=== PATIENT | female | born 1940 | race American Indian/Alaskan Native ===

== ENCOUNTER 2017-01-17 16:14 | Inpatient (IN) | payer OTHER, MEDICARE ==
[2017-01-17 18:13] VITALS: BMI 32.8
--- NOTE | 2017-01-17 19:10 | CP.PCM.HP ---
History of Present Illness - History of Present Illness History of Present Illness: 76 yo female with history of CAD, HTN, Asthma, DM2, Anemia and OA underwent left TKR on 01/14/2017 after failing conservative management of OA. She was transferred to [facility] TCU for continued management and PT. Present on Admission - Present on Admission Any Indicators Present on Admission: No History of DVT/PE: No History of Uncontrolled Diabetes: No Urinary Catheter: No Decubitus Ulcer Present: No Review of Systems - Review of Systems All systems: reviewed and no additional remarkable complaints except (aside from those mentioned above, 12 point system review were negative by me) Past Patient History - Tetanus Immunizations Tetanus Immunization: Unknown - Past Medical History & Family History Past Medical History?: Yes - Past Social History Smoking Status: Never Smoked Alcohol: None Drugs: Denies - CARDIAC Hx Cardiac Disorders: Yes Hx Circulatory Problems: Yes Hx Hypercholesterolemia: Yes Hx Hypertension: Yes - PULMONARY Hx Respiratory Disorders: Yes Hx Asthma: Yes Hx Pneumonia: Yes Hx Tuberculosis: Yes (AGE 16) - NEUROLOGICAL Hx Neurological Disorder: No - HEENT Hx HEENT Problems: Yes (GLASSES) Hx Cataracts: Yes (IOLI RT EYE) - RENAL Hx Chronic Kidney Disease: No - ENDOCRINE/METABOLIC Hx Endocrine Disorders: Yes Hx Diabetes Mellitus Type 2: Yes Hx Hypothyroidism: Yes - HEMATOLOGICAL/ONCOLOGICAL Hx Blood Disorders: No - INTEGUMENTARY Hx Dermatological Problems: No - MUSCULOSKELETAL/RHEUMATOLOGICAL Hx Musculoskeletal Disorders: Yes Hx Back Pain: Yes (LUMBAR SCIATICA) Hx Osteoarthritis: Yes - GASTROINTESTINAL Hx Gastrointestinal Disorders: Yes Hx Gastritis: Yes Hx Gastroesophageal Reflux: Yes - GENITOURINARY/GYNECOLOGICAL Hx Genitourinary Disorders: No - PSYCHIATRIC Hx Anxiety: Yes (RELATED TO 1 YR. HOSPITALIZATION FOR TB AT AGE 16) Hx Emotional Abuse: No Hx Physical Abuse: No Hx Substance Use: No - SURGICAL HISTORY Hx Surgeries: Yes (cardiac cath 11/12; lesix3; ptca/stent ; btl; colonoscopy) Hx Cataract Extraction: Yes (RT EYE IOLI) Hx Cardiac Catheterization: Yes (2007) Hx Coronary Stent: Yes (X1) Hx Pulmonary Surgery: Yes (AGE 17 EXC. TUBERCULAR LESION LEFT LUNG) Hx Tubal Ligation: Yes Other/Comment: EPIDURALS FOR BACK PAIN - ANESTHESIA Hx Anesthesia: Yes Hx Anesthesia Reactions: No Hx Malignant Hyperthermia: No Meds Allergies/Adverse Reactions: Allergies Allergy/AdvReac Type Severity Reaction Status Date / Time No Known Allergies Allergy Verified 01/17/17 18:13 Physical Exam - Constitutional Appears: No Acute Distress - Head Exam Head Exam: ATRAUMATIC - Eye Exam Eye Exam: absent: Scleral icterus - ENT Exam ENT Exam: Mucous Membranes Moist - Neck Exam Neck exam: Negative for: Meningismus - Respiratory Exam Respiratory Exam: absent: Rhonchi, Wheezes, Respiratory Distress - Cardiovascular Exam Cardiovascular Exam: REGULAR RHYTHM, +S1, +S2 - GI/Abdominal Exam GI & Abdominal Exam: Soft. absent: Tenderness - Rectal Exam Rectal Exam: Deferred - Extremities Exam Extremities exam: Negative for: full ROM (left knee with limited ROM post TKR) - Back Exam Back exam: NORMAL INSPECTION - Neurological Exam Neurological exam: Alert, Oriented x3 - Psychiatric Exam Psychiatric exam: Normal Affect - Skin Skin Exam: Dry, Intact Assessment & Plan - Assessment and Plan (Free Text) Assessment: 76 yo female with history of CAD, HTN, Asthma, DM2, Anemia and OA underwent left TKR on 01/14/2017 after failing conservative management of OA. She was transferred to TCU for continued management and PT. (1) Primary osteoarthritis of left knee left TKR, POD # 3 continue pain management refer to PT for evaluation and management CPM per orthopedist recommendation (2) HTN (hypertension) BP stable continue Valsartan and HCTZ (3) DM2 BS controlled diabetic diet accuchek ACHS Metformin 850mg PO q am (4) CAD (coronary artery disease) asymptomatic continue ASA, Lipitor and Isosorbide Mononitrate (5) Hyperlipidemia continue Lipitor (6) Asthma Advair 1 puff q 12hrs Montelukast 1omg PO HS (7) Hypothyroidism [id number] PO daily (8) DVT Prophylaxis Lovenox 30mg SC q 12hrs
[2017-01-17] MEDS ORDERED: DEXTROSE IV SCH (19:45)
[2017-01-17] MEDS ORDERED: CEFAZOLIN IV SCH (19:45)
[2017-01-17] MEDS ORDERED: Tuberculin 5 Units/0.1 ml Inj ID ONE (19:53)
[2017-01-17 20:40] VITALS: RESP 20
[2017-01-17] MEDS: Enoxaparin 30 mg Syringe SC SCH (20:40)
[2017-01-18] MEDS: ceFAZolin 1 GM in Sodium Chloride 0.9% 100 ML IVPB SCH ×3 (00:07→16:40)
[2017-01-18 08:05] LABS: BASO % 0.2 % (0.0-2.0); EOS # 0.2 K/uL (0.0-0.7); EOS % 2.2 % (0.0-4.0); HEMATOCRIT 24.5 % (34.0-47.0); LYMPH # 2.2 K/uL (1.0-4.3); LYMPH % 20.3 % (20.0-40.0); MEAN CELL VOLUME 79.2 fl (81.0-99.0); MEAN CORPUSCULAR HEMOGLOBIN 26.6 pg (27.0-31.0); MEAN CORPUSCULAR HGB CONC 33.6 g/dL (33.0-37.0); MEAN PLATELET VOLUME 8.6 fl (7.2-11.7); MONO # 1.2 K/uL (0.0-0.8); MONO % 10.9 % (0.0-10.0); NEUT # 7.1 K/uL (1.8-7.0); NEUT % 66.4 % (50.0-75.0); RED CELL DISTRIBUTION WIDTH 15.5 % (11.5-14.5); WHITE BLOOD COUNT 10.7 K/uL (4.8-10.8)
[2017-01-18 08:16] LABS: BLOOD UREA NITROGEN 19 mg/dl (7-17); CALCIUM 8.3 mg/dL (8.4-10.2); CARBON DIOXIDE 26 mmol/L (22-30); CHLORIDE 101 mmol/L (98-107); GFR AFRICAN-AMERICAN > 60; GLUCOSE,RANDOM 106 mg/dL (65-105); POTASSIUM 4.1 MMOL/L (3.6-5.0); SODIUM 133 mmol/l (132-148)
[2017-01-18] MEDS: Oxycodone/Acetaminophen 5/325 mg Tab PO PRN ×3 (09:06→22:10)
[2017-01-18] MEDS: Fluticasone-Salmeterol 500-50mcg Diskus INH SCH ×2 (09:08→16:40)
[2017-01-18] MEDS: Levothyroxine 50 MCG TAB PO SCH (09:09)
[2017-01-18] MEDS: Enoxaparin 30 mg Syringe SC SCH ×2 (09:09→22:12)
[2017-01-18] MEDS: Pantoprazole 40 mg EC Tab PO SCH (09:11)
[2017-01-19] MEDS: ceFAZolin 1 GM in Sodium Chloride 0.9% 100 ML IVPB SCH ×3 (00:08→22:27)
[2017-01-19] MEDS: Levothyroxine 50 MCG TAB PO SCH (06:30)
[2017-01-19] MEDS: Oxycodone/Acetaminophen 5/325 mg Tab PO PRN ×2 (06:31→12:24)
[2017-01-19] MEDS: Fluticasone-Salmeterol 500-50mcg Diskus INH SCH ×2 (08:52→17:49)
[2017-01-19] MEDS: Pantoprazole 40 mg EC Tab PO SCH (08:52)
[2017-01-19] MEDS: Enoxaparin 30 mg Syringe SC SCH ×3 (08:52→22:28)
[2017-01-19] MEDS ORDERED: Chlorhexidine Gluconate 1 APPL/PKT TP ONE (17:38)
[2017-01-20] MEDS: Oxycodone/Acetaminophen 5/325 mg Tab PO PRN ×3 (01:55→14:44)
[2017-01-20] MEDS: ceFAZolin 1 GM in Sodium Chloride 0.9% 100 ML IVPB SCH ×3 (04:18→21:17)
[2017-01-20] MEDS: Levothyroxine 50 MCG TAB PO SCH (06:19)
[2017-01-20] MEDS: Pantoprazole 40 mg EC Tab PO SCH (09:17)
[2017-01-20] MEDS: Enoxaparin 30 mg Syringe SC SCH ×2 (09:18→21:18)
[2017-01-20] MEDS: Fluticasone-Salmeterol 500-50mcg Diskus INH SCH ×2 (09:18→17:25)
--- NOTE | 2017-01-20 17:43 | CP.PCM.CON ---
History of Present Illness - History of Present Illness History of Present Illness: Dr Rojas PMR consultation on Lynne Reed, born 1940, who has been admitted to [facility] TCU following a left TKR with Dr Dsouza. Post op doing well. Pain is well controlled. She is constipated though. Had a BM friday from a [facility]. She notes that she is diabetic but since here on strict diet sugars are much better controlled Review of Systems - Constitutional Constitutional: absent: Anorexia, Chills - EENT Ears: absent: Ear Discharge Nose/Mouth/Throat: absent: Epistaxis, Nasal Congestion - Cardiovascular Cardiovascular: absent: Chest Pain, Claudication - Respiratory Respiratory: absent: Dyspnea - Gastrointestinal Gastrointestinal: Constipation - Musculoskeletal Musculoskeletal: absent: Back Pain - Integumentary Integumentary: absent: Alopecia, Bleeding Lesions - Neurological Neurological: absent: Abnormal Movements, Numbness Past Patient History - Tetanus Immunizations Tetanus Immunization: Unknown - Past Medical History & Family History Past Medical History?: Yes - Past Social History Smoking Status: Never Smoked Alcohol: None Drugs: Denies Home Situation {Lives}: With Family - CARDIAC Hx Cardiac Disorders: Yes Hx Circulatory Problems: Yes Hx Hypercholesterolemia: Yes Hx Hypertension: Yes - PULMONARY Hx Respiratory Disorders: Yes Hx Asthma: Yes Hx Pneumonia: Yes Hx Tuberculosis: Yes (AGE 16) - NEUROLOGICAL Hx Neurological Disorder: No - HEENT Hx HEENT Problems: Yes (GLASSES) Hx Cataracts: Yes (IOLI RT EYE) - RENAL Hx Chronic Kidney Disease: No - ENDOCRINE/METABOLIC Hx Endocrine Disorders: Yes Hx Diabetes Mellitus Type 2: Yes Hx Hypothyroidism: Yes - HEMATOLOGICAL/ONCOLOGICAL Hx AIDS: No Hx Human Immunodeficiency Virus (HIV): No - INTEGUMENTARY Hx Dermatological Problems: No - MUSCULOSKELETAL/RHEUMATOLOGICAL Hx Falls: No - GASTROINTESTINAL Hx Gastrointestinal Disorders: Yes Hx Gastritis: Yes Hx Gastroesophageal Reflux: Yes - GENITOURINARY/GYNECOLOGICAL Hx Genitourinary Disorders: No - PSYCHIATRIC Hx Substance Use: No - SURGICAL HISTORY Hx Surgeries: Yes (cardiac cath 11/12; lesix3; ptca/stent ; btl; colonoscopy) Hx Cataract Extraction: Yes (RT EYE IOLI) Hx Cardiac Catheterization: Yes (2007) Hx Coronary Stent: Yes (X1) Hx Pulmonary Surgery: Yes (AGE 17 EXC. TUBERCULAR LESION LEFT LUNG) Hx Tubal Ligation: Yes Other/Comment: EPIDURALS FOR BACK PAIN - ANESTHESIA Hx Anesthesia: Yes Hx Anesthesia Reactions: No Hx Malignant Hyperthermia: No Meds Allergies/Adverse Reactions: Allergies Allergy/AdvReac Type Severity Reaction Status Date / Time No Known Allergies Allergy Verified 01/17/17 18:13 - Medications Medications: Current Medications Aspirin (Ecotrin) 81 mg PO DAILY [facility] Last Admin: 01/20/17 09:17 Dose: 81 mg Atorvastatin Calcium (Lipitor) 80 mg PO QPM [facility] Last Admin: 01/20/17 17:25 Dose: 80 mg Docusate Sodium (Colace) 100 mg PO TID [facility] Last Admin: 01/20/17 17:25 Dose: 100 mg Enoxaparin Sodium (Lovenox) 30 mg SC Q12@0900,2100 [facility] PRN Reason: Protocol Last Admin: 01/20/17 09:18 Dose: 30 mg Ferrous Sulfate (Feosol) 325 mg PO DAILY [facility] Last Admin: 01/20/17 09:17 Dose: 325 mg Hydrochlorothiazide (Microzide) 12.5 mg PO DAILY [facility] Last Admin: 01/20/17 09:17 Dose: 12.5 mg Cefazolin Sodium 1 gm/ Sodium (Chloride) 100 mls @ 100 mls/hr IVPB Q8@0500,1300 ,2100 [facility] Last Admin: 01/20/17 12:45 Dose: 100 mls/hr Isosorbide Mononitrate (Imdur) 60 mg PO QPM [facility] Last Admin: 01/20/17 17:25 Dose: 60 mg Levothyroxine Sodium (Synthroid) 50 mcg PO 0630 [facility] Last Admin: 01/20/17 06:19 Dose: 50 mcg Montelukast Sodium (Singulair) 10 mg PO QPM [facility] Last Admin: 01/20/17 17:25 Dose: 10 mg Oxycodone/Acetaminophen (Percocet 5/325 Mg Tab) 1 tab PO Q6 PRN PRN Reason: Pain, moderate (4-7) Stop: 01/21/17 08:51 Last Admin: 01/20/17 01:55 Dose: 1 tab Oxycodone/Acetaminophen (Percocet 5/325 Mg Tab) 2 tab PO Q6 PRN PRN Reason: Pain, severe (8-10) Stop: 01/21/17 08:51 Last Admin: 01/20/17 14:44 Dose: 2 tab Pantoprazole Sodium (Protonix Ec Tab) 40 mg PO DAILY [facility] Last Admin: 01/20/17 09:17 Dose: 40 mg Pregabalin (Lyrica) 50 mg PO DAILY [facility] Last Admin: 01/20/17 09:17 Dose: 50 mg Fluticasone/Salmeterol (Advair Diskus 500/50) 1 puff INH BID [facility] Last Admin: 01/20/17 17:25 Dose: 1 puff Valsartan (Diovan) 160 mg PO DAILY [facility] Last Admin: 01/20/17 09:17 Dose: 160 mg Physical Exam - Constitutional Appears: Well, Non-toxic, No Acute Distress - Head Exam Head Exam: ATRAUMATIC, NORMAL INSPECTION, NORMOCEPHALIC - Eye Exam Eye Exam: EOMI - ENT Exam ENT Exam: Mucous Membranes Moist - Respiratory Exam Respiratory Exam: NORMAL BREATHING PATTERN - Cardiovascular Exam Cardiovascular Exam: REGULAR RHYTHM - Extremities Exam Extremities exam: Negative for: calf tenderness, normal inspection (has aquacel dressing on the left knee, minimal erythema and swelling) Results - Vital Signs Recent Vital Signs: Last Vital Signs Temp 97.3 F L 01/20/17 16:37 Pulse 87 01/20/17 16:37 Resp 20 01/20/17 16:37 BP 122/76 01/20/17 16:37 Pulse Ox 98 01/20/17 16:37 - Labs Result Diagrams: 01/18/17 06:00 01/18/17 06:00 Labs: Laboratory Results - last 24 hr 01/19/17 01/20/17 01/20/17 20:33 06:38 08:50 POC Glucose (mg/dL) 96 58 L 179 H 01/20/17 01/20/17 11:11 16:22 POC Glucose (mg/dL) 120 H 97 Assessment & Plan - Assessment and Plan (Free Text) Assessment: PT/OT to continue to help increase functional independence Pain: controlled Vascular: no evidence of DVT GI:+ constipation, add MOM Patient continues to be an excellent TCU rehabilitation candidate and will have continued focused PT, OT and recreational therapy to help facilitate a safe and appropriate d/c plan
[2017-01-21] MEDS: Oxycodone/Acetaminophen 5/325 mg Tab PO PRN ×4 (00:43→18:21)
[2017-01-21] MEDS: ceFAZolin 1 GM in Sodium Chloride 0.9% 100 ML IVPB SCH ×3 (05:31→21:46)
[2017-01-21] MEDS: Levothyroxine 50 MCG TAB PO SCH (06:36)
[2017-01-21] MEDS: Enoxaparin 30 mg Syringe SC SCH ×2 (08:36→21:46)
[2017-01-21] MEDS: Fluticasone-Salmeterol 500-50mcg Diskus INH SCH ×2 (08:37→16:14)
[2017-01-21] MEDS: Pantoprazole 40 mg EC Tab PO SCH (08:37)
[2017-01-21 13:00] LABS: HEMATOCRIT 24.2 % (34.0-47.0); MEAN CELL VOLUME 78.9 fl (81.0-99.0); MEAN CORPUSCULAR HEMOGLOBIN 26.8 pg (27.0-31.0); MEAN CORPUSCULAR HGB CONC 33.9 g/dL (33.0-37.0); RED CELL DISTRIBUTION WIDTH 15.5 % (11.5-14.5); WHITE BLOOD COUNT 8.3 K/uL (4.8-10.8)
--- NOTE | 2017-01-21 14:31 | CP.PCM.PN ---
Subjective - Date & Time of Evaluation Date of Evaluation: 01/21/17 Time of Evaluation: 14:29 - Subjective Subjective: pt doing well tolerating PT no cp no sob hd stable nad Objective - Vital Signs/Intake and Output Vital Signs (last 24 hours): Temp Pulse Resp BP Pulse Ox 97.7 F 96 H 20 122/61 99 01/21/17 08:08 01/21/17 08:08 01/21/17 08:08 01/21/17 08:08 01/21/17 08:08 Exam: GEN: WDWN, alert, cooperative HEENT: NCAT, PERRL, EOMI NECK: supple, no JVD, no lymphadenopathy CARDIAC: +S1S2 RRR LUNG: CTAB No WRR ABD: SOFT NT ND BSX4 NO MASSES NO HSM EXT: +pedal pulses, warm NEURO: AAOx3 SKIN warm, dry PSYCH normal mood, normal affect - Medications Medications: Current Medications Aspirin (Ecotrin) 81 mg PO DAILY [facility] Last Admin: 01/21/17 08:36 Dose: 81 mg Atorvastatin Calcium (Lipitor) 80 mg PO QPM [facility] Last Admin: 01/20/17 17:25 Dose: 80 mg Docusate Sodium (Colace) 100 mg PO TID [facility] Last Admin: 01/21/17 12:27 Dose: 100 mg Enoxaparin Sodium (Lovenox) 30 mg SC Q12@0900,2100 [facility] PRN Reason: Protocol Last Admin: 01/21/17 08:36 Dose: 30 mg Ferrous Sulfate (Feosol) 325 mg PO DAILY [facility] Last Admin: 01/21/17 08:37 Dose: 325 mg Hydrochlorothiazide (Microzide) 12.5 mg PO DAILY [facility] Last Admin: 01/21/17 08:36 Dose: 12.5 mg Cefazolin Sodium 1 gm/ Sodium (Chloride) 100 mls @ 100 mls/hr IVPB Q8@0500,1300 ,2100 [facility] Last Admin: 01/21/17 13:54 Dose: 100 mls/hr Isosorbide Mononitrate (Imdur) 60 mg PO QPM [facility] Last Admin: 01/20/17 17:25 Dose: 60 mg Lactulose (Enulose) 20 gm PO DAILY PRN PRN Reason: Constipation Levothyroxine Sodium (Synthroid) 50 mcg PO 0630 [facility] Last Admin: 01/21/17 06:36 Dose: 50 mcg Magnesium Hydroxide (Milk Of Magnesia) 30 ml PO DAILY PRN PRN Reason: Constipation Montelukast Sodium (Singulair) 10 mg PO QPM [facility] Last Admin: 01/20/17 17:25 Dose: 10 mg Oxycodone/Acetaminophen (Percocet 5/325 Mg Tab) 1 tab PO Q6 PRN PRN Reason: Pain, moderate (4-7) Stop: 01/24/17 14:01 Oxycodone/Acetaminophen (Percocet 5/325 Mg Tab) 2 tab PO Q6 PRN PRN Reason: Pain, severe (8-10) Stop: 01/24/17 14:01 Pantoprazole Sodium (Protonix Ec Tab) 40 mg PO DAILY [facility] Last Admin: 01/21/17 08:37 Dose: 40 mg Fluticasone/Salmeterol (Advair Diskus 500/50) 1 puff INH BID [facility] Last Admin: 01/21/17 08:37 Dose: 1 puff Valsartan (Diovan) 160 mg PO DAILY [facility] Last Admin: 01/21/17 08:36 Dose: 160 mg - Labs Labs: 01/21/17 12:57 01/18/17 06:00 Assessment and Plan - Assessment and Plan (Free Text) Plan: 76 yo female with history of CAD, HTN, Asthma, DM2, Anemia and OA underwent left TKR on 01/14/2017 after failing conservative management of OA. She was transferred to TCU for continued management and PT. (1) Primary osteoarthritis of left knee left TKR, POD # 3 continue pain management refer to PT for evaluation and management CPM per orthopedist recommendation 7 total days of Ancef, 4 more days (2) HTN (hypertension) BP stable continue Valsartan and HCTZ (3) DM2 BS controlled diabetic diet accuchek ACHS Metformin 850mg PO q am (4) CAD (coronary artery disease) asymptomatic continue ASA, Lipitor and Isosorbide Mononitrate (5) Hyperlipidemia continue Lipitor (6) Asthma Advair 1 puff q 12hrs Montelukast 1omg PO HS (7) Hypothyroidism [id number] PO daily (8) DVT Prophylaxis Lovenox 30mg SC q 12hrs
[2017-01-22] MEDS: Oxycodone/Acetaminophen 5/325 mg Tab PO PRN ×4 (02:23→22:14)
[2017-01-22] MEDS: Levothyroxine 50 MCG TAB PO SCH (05:55)
[2017-01-22] MEDS: ceFAZolin 1 GM in Sodium Chloride 0.9% 100 ML IVPB SCH ×3 (05:55→22:11)
[2017-01-22] MEDS: Enoxaparin 30 mg Syringe SC SCH ×2 (08:29→22:16)
[2017-01-22] MEDS: Pantoprazole 40 mg EC Tab PO SCH (08:30)
[2017-01-22] MEDS: Fluticasone-Salmeterol 500-50mcg Diskus INH SCH ×2 (08:31→17:43)
[2017-01-23] MEDS: Oxycodone/Acetaminophen 5/325 mg Tab PO PRN ×3 (05:10→23:33)
[2017-01-23] MEDS: ceFAZolin 1 GM in Sodium Chloride 0.9% 100 ML IVPB SCH ×2 (05:12→13:45)
[2017-01-23] MEDS: Levothyroxine 50 MCG TAB PO SCH (08:07)
[2017-01-23] MEDS: Fluticasone-Salmeterol 500-50mcg Diskus INH SCH ×2 (08:11→18:00)
[2017-01-23] MEDS: Enoxaparin 30 mg Syringe SC SCH ×2 (08:12→20:56)
[2017-01-23] MEDS: Pantoprazole 40 mg EC Tab PO SCH (08:13)
[2017-01-23] MEDS: Magnesium Hydroxide Susp 30 ml UD PO PRN (17:59)
--- NOTE | 2017-01-23 20:21 | CP.PCM.PN ---
Subjective - Date & Time of Evaluation Date of Evaluation: 01/23/17 Time of Evaluation: 16:00 - Subjective Subjective: Pt seen and examined. Complained of constipation not responding to oral laxative. Last BM was 4 days ago made possible enema. Objective - Vital Signs/Intake and Output Vital Signs (last 24 hours): Temp Pulse Resp BP Pulse Ox 98.1 F 91 H 20 129/52 L 97 01/23/17 17:29 01/23/17 17:29 01/23/17 17:29 01/23/17 17:29 01/23/17 17:29 - Medications Medications: Current Medications Aspirin (Ecotrin) 81 mg PO DAILY [facility] Last Admin: 01/23/17 08:12 Dose: 81 mg Atorvastatin Calcium (Lipitor) 80 mg PO QPM [facility] Last Admin: 01/23/17 18:00 Dose: 80 mg Docusate Sodium (Colace) 100 mg PO TID [facility] Last Admin: 01/23/17 18:00 Dose: 100 mg Enoxaparin Sodium (Lovenox) 30 mg SC Q12@0900,2100 [facility] PRN Reason: Protocol Last Admin: 01/23/17 08:12 Dose: 30 mg Ferrous Sulfate (Feosol) 325 mg PO DAILY [facility] Last Admin: 01/23/17 08:12 Dose: 325 mg Hydrochlorothiazide (Microzide) 12.5 mg PO DAILY [facility] Last Admin: 01/23/17 08:11 Dose: 12.5 mg Cefazolin Sodium 1 gm/ Sodium (Chloride) 100 mls @ 100 mls/hr IVPB Q8@0500,1300 ,2100 [facility] Last Admin: 01/23/17 13:45 Dose: 100 mls/hr Isosorbide Mononitrate (Imdur) 60 mg PO QPM [facility] Last Admin: 01/23/17 18:00 Dose: 60 mg Lactulose (Enulose) 20 gm PO DAILY PRN PRN Reason: Constipation Last Admin: 01/22/17 08:32 Dose: 20 gm Levothyroxine Sodium (Synthroid) 50 mcg PO 0630 [facility] Last Admin: 01/23/17 08:07 Dose: 50 mcg Magnesium Hydroxide (Milk Of Magnesia) 30 ml PO DAILY PRN PRN Reason: Constipation Last Admin: 01/23/17 17:59 Dose: 30 ml Montelukast Sodium (Singulair) 10 mg PO QPM [facility] Last Admin: 01/23/17 17:59 Dose: 10 mg Oxycodone/Acetaminophen (Percocet 5/325 Mg Tab) 1 tab PO Q6 PRN PRN Reason: Pain, moderate (4-7) Stop: 01/24/17 14:01 Last Admin: 01/23/17 17:58 Dose: 1 tab Oxycodone/Acetaminophen (Percocet 5/325 Mg Tab) 2 tab PO Q6 PRN PRN Reason: Pain, severe (8-10) Stop: 01/24/17 14:01 Last Admin: 01/23/17 05:10 Dose: 2 tab Pantoprazole Sodium (Protonix Ec Tab) 40 mg PO DAILY [facility] Last Admin: 01/23/17 08:13 Dose: 40 mg Fluticasone/Salmeterol (Advair Diskus 500/50) 1 puff INH BID [facility] Last Admin: 01/23/17 18:00 Dose: 1 puff Valsartan (Diovan) 160 mg PO DAILY [facility] Last Admin: 01/23/17 08:12 Dose: 160 mg - Labs Labs: 01/21/17 12:57 01/18/17 06:00 - Constitutional Appears: No Acute Distress - Head Exam Head Exam: ATRAUMATIC - Eye Exam Eye Exam: absent: Scleral icterus - ENT Exam ENT Exam: Mucous Membranes Moist - Neck Exam Neck Exam: absent: Meningismus - Respiratory Exam Respiratory Exam: absent: Rhonchi, Wheezes, Respiratory Distress - Cardiovascular Exam Cardiovascular Exam: REGULAR RHYTHM, +S1, +S2 - GI/Abdominal Exam GI & Abdominal Exam: Soft. absent: Tenderness - Rectal Exam Rectal Exam: Deferred - Extremities Exam Extremities Exam: Joint Swelling (left knee swollen with limited ROM) - Neurological Exam Neurological Exam: Alert, Oriented x3 - Psychiatric Exam Psychiatric exam: Normal Affect - Skin Skin Exam: Dry, Intact Assessment and Plan - Assessment and Plan (Free Text) Assessment: 76 yo female with history of CAD, HTN, Asthma, DM2, Anemia and OA underwent left TKR on 01/14/2017 after failing conservative management of OA. She was transferred to TCU for continued management and PT. (1) Primary osteoarthritis of left knee left TKR, POD # 9 continue pain management CPM per orthopedist recommendation continue PT (2) HTN (hypertension) BP stable continue Valsartan and HCTZ (3) DM2 BS controlled diabetic diet accuchek ACHS HgA1C, BMP in am (4) CAD (coronary artery disease) asymptomatic continue ASA, Lipitor and Isosorbide Mononitrate (5) Hyperlipidemia continue Lipitor (6) Asthma Advair 1 puff q 12hrs Montelukast 1omg PO HS (7) Hypothyroidism [id number] PO daily (8) DVT Prophylaxis Lovenox 30mg SC q 12hrs
[2017-01-24] MEDS: Levothyroxine 50 MCG TAB PO SCH (07:06)
[2017-01-24] MEDS: Fluticasone-Salmeterol 500-50mcg Diskus INH SCH ×2 (08:43→17:07)
[2017-01-24] MEDS: Pantoprazole 40 mg EC Tab PO SCH (08:44)
[2017-01-24] MEDS: Enoxaparin 30 mg Syringe SC SCH ×2 (08:45→21:30)
[2017-01-24] MEDS: Magnesium Hydroxide Susp 30 ml UD PO PRN (08:47)
[2017-01-24] MEDS: Oxycodone/Acetaminophen 5/325 mg Tab PO PRN (12:43)
[2017-01-24 14:01] LABS: BASO # 0.1 K/uL (0.0-0.2); BASO % 0.8 % (0.0-2.0); EOS # 0.3 K/uL (0.0-0.7); EOS % 3.6 % (0.0-4.0); HEMATOCRIT 24.3 % (34.0-47.0); LYMPH % 22.5 % (20.0-40.0); MEAN CELL VOLUME 79.6 fl (81.0-99.0); MEAN CORPUSCULAR HEMOGLOBIN 26.3 pg (27.0-31.0); MEAN PLATELET VOLUME 7.4 fl (7.2-11.7); MONO # 0.9 K/uL (0.0-0.8); MONO % 10.3 % (0.0-10.0); NEUT # 5.7 K/uL (1.8-7.0); NEUT % 62.8 % (50.0-75.0); RED CELL DISTRIBUTION WIDTH 15.5 % (11.5-14.5); WHITE BLOOD COUNT 9.1 K/uL (4.8-10.8)
--- NOTE | 2017-01-24 15:52 | CP.PCM.PN ---
Subjective - Date & Time of Evaluation Date of Evaluation: 01/24/17 Time of Evaluation: 15:51 - Subjective Subjective: left TKR adjusted walker height good step through gait pain is well controlled no pain with palpation continue current care Objective - Vital Signs/Intake and Output Vital Signs (last 24 hours): Temp Pulse Resp BP Pulse Ox 97.9 F 86 20 127/62 99 01/24/17 09:09 01/24/17 09:09 01/24/17 09:09 01/24/17 09:09 01/24/17 09:09 - Medications Medications: Current Medications Aspirin (Ecotrin) 81 mg PO DAILY [facility] Last Admin: 01/24/17 08:44 Dose: 81 mg Atorvastatin Calcium (Lipitor) 80 mg PO QPM [facility] Last Admin: 01/23/17 18:00 Dose: 80 mg Docusate Sodium (Colace) 100 mg PO TID [facility] Last Admin: 01/24/17 12:30 Dose: 100 mg Enoxaparin Sodium (Lovenox) 30 mg SC Q12@0900,2100 [facility] PRN Reason: Protocol Last Admin: 01/24/17 08:45 Dose: 30 mg Ferrous Sulfate (Feosol) 325 mg PO DAILY [facility] Last Admin: 01/24/17 08:46 Dose: 325 mg Hydrochlorothiazide (Microzide) 12.5 mg PO DAILY [facility] Last Admin: 01/24/17 08:44 Dose: 12.5 mg Isosorbide Mononitrate (Imdur) 60 mg PO QPM [facility] Last Admin: 01/23/17 18:00 Dose: 60 mg Lactulose (Enulose) 20 gm PO DAILY PRN PRN Reason: Constipation Last Admin: 01/22/17 08:32 Dose: 20 gm Levothyroxine Sodium (Synthroid) 50 mcg PO 0630 [facility] Last Admin: 01/24/17 07:06 Dose: 50 mcg Magnesium Hydroxide (Milk Of Magnesia) 30 ml PO DAILY PRN PRN Reason: Constipation Last Admin: 01/24/17 08:47 Dose: 30 ml Montelukast Sodium (Singulair) 10 mg PO QPM [facility] Last Admin: 01/23/17 17:59 Dose: 10 mg Pantoprazole Sodium (Protonix Ec Tab) 40 mg PO DAILY [facility] Last Admin: 01/24/17 08:44 Dose: 40 mg Fluticasone/Salmeterol (Advair Diskus 500/50) 1 puff INH BID [facility] Last Admin: 01/24/17 08:43 Dose: 1 puff Valsartan (Diovan) 160 mg PO DAILY [facility] Last Admin: 01/24/17 08:44 Dose: 160 mg - Labs Labs: 01/24/17 13:47 01/18/17 06:00
[2017-01-24] MEDS ORDERED: Oxycodone/Acetaminophen 5/325 mg Tab PO PRN (18:41)
[2017-01-25] MEDS: Oxycodone/Acetaminophen 5/325 mg Tab PO PRN ×4 (01:25→22:58)
[2017-01-25] MEDS: Levothyroxine 50 MCG TAB PO SCH (06:17)
[2017-01-25] MEDS: Enoxaparin 30 mg Syringe SC SCH ×2 (09:36→20:50)
[2017-01-25] MEDS: Pantoprazole 40 mg EC Tab PO SCH (09:37)
[2017-01-25] MEDS: Fluticasone-Salmeterol 500-50mcg Diskus INH SCH ×2 (09:40→17:57)
[2017-01-26] MEDS: Levothyroxine 50 MCG TAB PO SCH (05:55)
[2017-01-26] MEDS: Oxycodone/Acetaminophen 5/325 mg Tab PO PRN ×3 (05:59→23:55)
[2017-01-26] MEDS: Enoxaparin 30 mg Syringe SC SCH ×2 (10:02→21:02)
[2017-01-26] MEDS: Fluticasone-Salmeterol 500-50mcg Diskus INH SCH ×2 (10:03→17:21)
[2017-01-26] MEDS: Pantoprazole 40 mg EC Tab PO SCH (10:05)
[2017-01-27] MEDS: Levothyroxine 50 MCG TAB PO SCH (06:03)
[2017-01-27] MEDS: Fluticasone-Salmeterol 500-50mcg Diskus INH SCH ×2 (08:50→17:38)
[2017-01-27] MEDS: Enoxaparin 30 mg Syringe SC SCH ×2 (08:51→21:37)
[2017-01-27] MEDS: Pantoprazole 40 mg EC Tab PO SCH (08:51)
[2017-01-27] MEDS: Oxycodone/Acetaminophen 5/325 mg Tab PO PRN ×2 (09:24→21:39)
[2017-01-27 20:15] VITALS: O2SAT 99
[2017-01-28] MEDS ORDERED: Oxycodone/Acetaminophen 5/325 mg Tab PO PRN ×2 (00:50→00:51)
[2017-01-28] MEDS: Levothyroxine 50 MCG TAB PO SCH (06:47)
[2017-01-28 08:29] VITALS: BP 125/60; PULSE 86; TEMP 97.9
[2017-01-28] MEDS: Fluticasone-Salmeterol 500-50mcg Diskus INH SCH (08:55)
[2017-01-28] MEDS: Enoxaparin 30 mg Syringe SC SCH (08:58)
[2017-01-28] MEDS: Pantoprazole 40 mg EC Tab PO SCH (08:58)
--- NOTE | 2017-01-28 10:31 | CP.PCM.DIS ---
Provider - Provider Date of Admission: 01/17/17 18:13 Attending physician: Young Allen MD Time Spent in preparation of Discharge (in minutes): 30 Hospital Course - Lab Results Lab Results: Most Recent Lab Values WBC 9.1 K/uL (4.8-10.8) 01/24/17 13:47 RBC 3.05 Mil/uL (3.80-5.20) L 01/24/17 13:47 Hgb 8.0 g/dL (12.0-16.0) L 01/24/17 13:47 Hct 24.3 % (34.0-47.0) L 01/24/17 13:47 MCV 79.6 fl (81.0-99.0) L 01/24/17 13:47 MCH 26.3 pg (27.0-31.0) L 01/24/17 13:47 MCHC 33.0 g/dL (33.0-37.0) 01/24/17 13:47 RDW 15.5 % (11.5-14.5) H 01/24/17 13:47 Plt Count 407 K/uL (130-400) H D 01/24/17 13:47 MPV 7.4 fl (7.2-11.7) 01/24/17 13:47 Neut % (Auto) 62.8 % (50.0-75.0) 01/24/17 13:47 Lymph % (Auto) 22.5 % (20.0-40.0) 01/24/17 13:47 [place] % (Auto) 10.3 % (0.0-10.0) H 01/24/17 13:47 Eos % (Auto) 3.6 % (0.0-4.0) 01/24/17 13:47 Baso % (Auto) 0.8 % (0.0-2.0) 01/24/17 13:47 Neut # 5.7 K/uL (1.8-7.0) 01/24/17 13:47 Lymph # 2.0 K/uL (1.0-4.3) 01/24/17 13:47 [place] # 0.9 K/uL (0.0-0.8) H 01/24/17 13:47 Eos # 0.3 K/uL (0.0-0.7) 01/24/17 13:47 Baso # 0.1 K/uL (0.0-0.2) 01/24/17 13:47 Sodium 133 mmol/l (132-148) 01/18/17 06:00 Potassium 4.1 MMOL/L (3.6-5.0) 01/18/17 06:00 Chloride 101 mmol/L (98-107) 01/18/17 06:00 Carbon Dioxide 26 mmol/L (22-30) 01/18/17 06:00 Anion Gap 11 (10-20) 01/18/17 06:00 BUN 19 mg/dl (7-17) H 01/18/17 06:00 Creatinine 1.0 mg/dL (0.7-1.2) 01/18/17 06:00 Est GFR ( Amer) > 60 01/18/17 06:00 Est GFR (Non-Af Amer) 54 01/18/17 06:00 POC Glucose (mg/dL) 127 mg/dL (65-110) H 01/28/17 05:41 Random Glucose 106 mg/dL (65-105) H 01/18/17 06:00 Hemoglobin A1c 6.4 % (4.2-6.5) 01/24/17 06:56 Calcium 8.3 mg/dL (8.4-10.2) L 01/18/17 06:00 Vancomycin Trough < 5.0 ug/mL (5.0-10.0) L 01/19/17 08:30 - Hospital Course Hospital Course: 76 yo female with history of CAD, HTN, Asthma, DM2, Anemia and OA underwent left TKR on 01/14/2017 after failing conservative management of OA. She was transferred to TCU for continued management and PT. Patient tolerated PT well, stable to be discharged home with outpatient PT (1) Primary osteoarthritis of left knee left TKR, POD continue pain management CPM per orthopedist recommendation continue PT (2) HTN (hypertension) BP stable continue Valsartan and HCTZ (3) DM2 BS controlled diabetic diet accuchek ACHS HgA1C, BMP in am (4) CAD (coronary artery disease) asymptomatic continue ASA, Lipitor and Isosorbide Mononitrate (5) Hyperlipidemia continue Lipitor (6) Asthma Advair 1 puff q 12hrs Montelukast 1omg PO HS (7) Hypothyroidism [id number] PO daily (8) DVT Prophylaxis Lovenox 30mg SC q 12hrs Discharge Exam - Head Exam Head Exam: ATRAUMATIC, NORMOCEPHALIC - Eye Exam Eye Exam: EOMI, Normal appearance, PERRL - ENT Exam ENT Exam: Mucous Membranes Moist, Normal Oropharynx - Respiratory Exam Respiratory Exam: Clear to PA & Lateral, NORMAL BREATHING PATTERN - Cardiovascular Exam Cardiovascular Exam: RRR, +S1, +S2 - GI/Abdominal Exam GI & Abdominal Exam: Normal Bowel Sounds, Soft. absent: Mass, Organomegaly, Tenderness - Extremities Exam Extremities exam: normal capillary refill, pedal pulses present - Back Exam Back exam: absent: CVA tenderness (L), CVA tenderness (R) - Neurological Exam Neurological exam: Alert, Oriented x3 - Psychiatric Exam Psychiatric exam: Normal Affect, Normal Mood - Skin Skin Exam: Dry, Warm Discharge Plan - Discharge Medications Prescriptions: Aspirin [Ecotrin] 81 mg PO DAILY #30 tab Atorvastatin Calcium [Lipitor] 80 mg PO QPM #30 tab Docusate [Colace] 100 mg PO TID #30 cap Enoxaparin [Lovenox] 30 mg SC Q12H #14 syr Ferrous Sulfate [Feosol] 325 mg PO DAILY #30 tab Fluticasone/Salmeterol 500/50 [Advair Diskus 500/50] 1 puff INH BID #60 puff hydroCHLOROthiazide [Microzide] 12.5 mg PO DAILY #30 cap Isosorbide Mononitrate [Imdur] 60 mg PO QPM #30 tab Levothyroxine [Synthroid] 1 tab PO DAILY #30 tab Montelukast [Singulair] 10 mg PO QPM #30 tab Valsartan [Diovan] 160 mg PO DAILY #30 tab - Follow Up Plan Condition: GOOD Disposition: HOME/ ROUTINE Instructions: Precautions after Total Joint Replacement Surgery (DC), Fall Prevention (DC), Joint Replacement Surgery (DC), Knee Replacement (DC) Referrals: Asa Dsouza MD [Medical Doctor] - Dale Rojas MD [Staff Provider] -
== END 2017-01-28 14:50 | disposition home or self-care (01) | DRG 561 ==
LOC: H.TCU 18:13
PROC: F07Z9FZ Gait Training/Functional Ambulation Treatment using Assistive, Adaptive, Supportive or Protective Equipment (ICD-10-PCS; principal; 2017-01-17)
PROC: F07L6FZ Therapeutic Exercise Treatment of Musculoskeletal System - Lower Back / Lower Extremity using Assistive, Adaptive, Supportive or Protective Equipment (ICD-10-PCS; 2017-01-17)
PROC: F08Z1FZ Dressing Techniques Treatment using Assistive, Adaptive, Supportive or Protective Equipment (ICD-10-PCS; 2017-01-17)
PROC: F07K6FZ Therapeutic Exercise Treatment of Musculoskeletal System - Upper Back / Upper Extremity using Assistive, Adaptive, Supportive or Protective Equipment (ICD-10-PCS; 2017-01-17)
PROC: F07Z5FZ Bed Mobility Treatment using Assistive, Adaptive, Supportive or Protective Equipment (ICD-10-PCS; 2017-01-17)
PROC: F08Z4FZ Home Management Treatment using Assistive, Adaptive, Supportive or Protective Equipment (ICD-10-PCS; 2017-01-17)
DX: Z47.1 Aftercare following joint replacement surgery (principal); E11.9 Type 2 diabetes mellitus without complications; I10 Essential (primary) hypertension; I25.10 Atherosclerotic heart disease of native coronary artery without angina pectoris; Z96.652 Presence of left artificial knee joint; J45.909 Unspecified asthma, uncomplicated; E78.5 Hyperlipidemia, unspecified; E03.9 Hypothyroidism, unspecified; K59.00 Constipation, unspecified; Z95.5 Presence of coronary angioplasty implant and graft